=== PATIENT | female | born 1950 | race Caucasian/White ===

== ENCOUNTER 2023-02-04 08:50 | Day surgery (SDC) | payer MEDICARE, OTHER ==
[2023-02-04] MEDS ORDERED: Sodium Chloride 0.9% 10 ML Syringe FLUSH PRN (09:00)
[2023-02-04] MEDS: Sodium Chloride 0.9% 1,000 ML IV SCH (09:16)
[2023-02-04] MEDS ORDERED: Midazolam 1 MG/ML 2 ML SDV ONE (09:21)
[2023-02-04] MEDS ORDERED: Propofol 200 MG/20 ML SDV ONE (09:22)
[2023-02-04] MEDS ORDERED: Glycopyrrolate 0.2 MG/ML SDV ONE (09:22)
[2023-02-04] MEDS ORDERED: Lidocaine 2% 100 MG/5 ML Syringe ONE (10:07)
[2023-02-04 15:04] VITALS: BP 128/74; PULSE 68
== END 2023-02-04 12:52 | disposition home or self-care (01) ==
LOC: KA.SDS 08:50
PROVIDERS: ATTEND Family Medicine
DX: K29.80 Duodenitis without bleeding (principal); K31.89 Other diseases of stomach and duodenum; K31.7 Polyp of stomach and duodenum; K57.30 Diverticulosis of large intestine without perforation or abscess without bleeding; K64.8 Other hemorrhoids; K29.70 Gastritis, unspecified, without bleeding; E11.9 Type 2 diabetes mellitus without complications; E78.5 Hyperlipidemia, unspecified; J45.40 Moderate persistent asthma, uncomplicated; F41.9 Anxiety disorder, unspecified; G25.81 Restless legs syndrome; E83.42 Hypomagnesemia; F32.A Depression, unspecified; G47.00 Insomnia, unspecified; M54.6 Pain in thoracic spine; R61 Generalized hyperhidrosis; F17.210 Nicotine dependence, cigarettes, uncomplicated; Z79.899 Other long term (current) drug therapy; Z79.84 Long term (current) use of oral hypoglycemic drugs; Z88.5 Allergy status to narcotic agent; Z88.8 Allergy status to other drugs, medicaments and biological substances
CPT/HCPCS: 00813; 82947; J2250; J2704; J3490; J7030